=== PATIENT | female | born 1965 | race Caucasian/White ===

== ENCOUNTER 2022-01-06 13:00 | Outpatient (RCR) | payer OTHER, SELFPAY ==
[2021-11-30 11:51] LABS: Basophils Percent Auto 0.5 % (0.0-3.0); Eosinophils Percent Auto 1.8 % (0.0-7.0); Hematocrit 35.5 % (33.0-51.0); Hemoglobin* 10.7 gm/dL (12.0-16.0); Immature Granulocytes Abs Auto 0.01 K/uL (0.00-0.30); Lymphocytes Percent Auto 10.6 % (20-44); Mean Corpuscular HGB Conc 30 gm/dL (32-36); Mean Corpuscular Hemoglobin 28 pg (26-34); Mean Corpuscular Volume 92 fL (80-100); Monocytes Percent Auto 6.5 % (0.0-11.0); Neutrophils Percent Auto 80.3 % (42.0-72.0); Platelet Count* 258 K/uL (140-440); Red Blood Count 3.86 m/uL (4.00-5.20); White Blood Count* 3.97 K/uL (4.50-11.00)
[2021-11-30 12:02] LABS: Slide Review Reflex No
[2021-11-30 12:15] LABS: Albumin* 3.1 g/dL (3.3-5.0); Chloride* 103 mmol/L (96-114)
[2021-11-30 12:16] LABS: Potassium* 3.4 mmol/L (3.6-5.1); Sodium* 135 mmol/L (135-149)
[2021-11-30 12:18] LABS: Alanine Aminotransferase* 13 U/L (4-35); Alkaline Phosphatase* 88 U/L (40-150); Aspartate Amino Transferase* 27 U/L (12-35); Bilirubin Total* 0.2 mg/dL (0.1-1.5); Blood Urea Nitrogen* 14 mg/dL (7-30); Carbon Dioxide* 27 mmol/L (20-32); Total Protein* 6.1 g/dL (6.0-8.3)
[2021-11-30 12:19] LABS: Calcium* 8.5 mg/dL (8.4-10.6); Glucose* 89 mg/dL (60-115)
[2021-11-30 14:26] LABS: Creatinine* 1.1 mg/dL (0.5-1.5); Estimated Glomerular Filt Rate 59 ml/min
--- NOTE | 2021-12-03 13:06 | ONC.NURNOTE ---
follow up call to Ana on new start Capecitabine message left on voice mail to call for side effects monitoring
[2021-12-03 13:45] VITALS: BMI 29.1
--- NOTE | 2021-12-04 10:54 | ONC.NURNOTE ---
New Start Capecitabine follow up call: Ana returned yesterday's call- reports no diarrhea, denies mouth sores or redness/tenderness of hands and feet reviewed administration schedule reports mild fatigue denies any questions or concerns next follow up scheduled with provider continue with weekly labs throughout treatment spoke with dietitians yesterday and has reviewed information states she is familiar with diet suggestions to address potential diarrhea patient states she has a new job and does not have any FMLA available to her and there fore plans to continue to work full schedule during treatment
[2021-12-07 09:06] LABS: Basophils Percent Auto 0.7 % (0.0-3.0); Eosinophils Percent Auto 2.7 % (0.0-7.0); Hematocrit 35.3 % (33.0-51.0); Hemoglobin* 10.6 gm/dL (12.0-16.0); Immature Granulocytes Abs Auto 0.04 K/uL (0.00-0.30); Lymphocytes Percent Auto 8.5 % (20-44); Mean Corpuscular HGB Conc 30 gm/dL (32-36); Mean Corpuscular Hemoglobin 28 pg (26-34); Mean Corpuscular Volume 93 fL (80-100); Monocytes Percent Auto 6.5 % (0.0-11.0); Neutrophils Percent Auto 80.2 % (42.0-72.0); Platelet Count* 238 K/uL (140-440); Red Blood Count 3.78 m/uL (4.00-5.20); White Blood Count* 2.94 K/uL (4.50-11.00)
[2021-12-07 09:22] LABS: Chloride* 105 mmol/L (96-114); Potassium* 3.5 mmol/L (3.6-5.1); Sodium* 139 mmol/L (135-149)
[2021-12-07 09:25] LABS: Blood Urea Nitrogen* 9 mg/dL (7-30); Carbon Dioxide* 28 mmol/L (20-32); Est. Creatinine Clearance* 50.27; Estimated Glomerular Filt Rate 67 ml/min
[2021-12-07 09:26] LABS: Calcium* 8.3 mg/dL (8.4-10.6); Glucose* 74 mg/dL (60-115)
[2021-12-07 09:33] LABS: Slide Review Reflex No
--- NOTE | 2021-12-07 12:06 | ONC.NURNOTE ---
Lab results reviewed and called to Ana as stable
[2021-12-15 09:21] LABS: Basophils Percent Auto 0.4 % (0.0-3.0); Hematocrit 33.9 % (33.0-51.0); Hemoglobin* 10.4 gm/dL (12.0-16.0); Immature Granulocytes Abs Auto 0.02 K/uL (0.00-0.30); Lymphocytes Percent Auto 6.4 % (20-44); Mean Corpuscular HGB Conc 31 gm/dL (32-36); Mean Corpuscular Hemoglobin 29 pg (26-34); Mean Corpuscular Volume 93 fL (80-100); Monocytes Percent Auto 8.3 % (0.0-11.0); Neutrophils Percent Auto 81.1 % (42.0-72.0); Platelet Count* 168 K/uL (140-440); RDW Coefficient of Variation % 18.4 % (11.5-15.5); Red Blood Count 3.63 m/uL (4.00-5.20); White Blood Count* 2.66 K/uL (4.50-11.00)
[2021-12-15 09:23] LABS: Slide Review Reflex No
[2021-12-15 09:42] LABS: Albumin* 3.3 g/dL (3.3-5.0); Chloride* 104 mmol/L (96-114)
[2021-12-15 09:43] LABS: Potassium* 3.3 mmol/L (3.6-5.1); Sodium* 137 mmol/L (135-149)
[2021-12-15 09:45] LABS: Alkaline Phosphatase* 74 U/L (40-150); Aspartate Amino Transferase* 24 U/L (12-35); Bilirubin Total* 0.2 mg/dL (0.1-1.5); Blood Urea Nitrogen* 10 mg/dL (7-30); Carbon Dioxide* 28 mmol/L (20-32); Creatinine* 1.1 mg/dL (0.5-1.5); Estimated Glomerular Filt Rate 59 ml/min; Total Protein* 5.9 g/dL (6.0-8.3)
[2021-12-15 09:46] LABS: Alanine Aminotransferase* 14 U/L (4-35); Calcium* 8.5 mg/dL (8.4-10.6); Glucose* 85 mg/dL (60-115)
--- NOTE | 2021-12-16 09:18 | ONC.NURNOTE ---
Lab results reviewed and called to Ana yesterday WBC/ANC discussed reports no concerns with redness, tenderness of plantar or horton surfaces reports no significant loose stools but using incontinent pads for some mucusy rectal leakage discussed K again and reviewed increasing K rich foods will address with provider on 's appt
[2021-12-22 09:02] LABS: Basophils Percent Auto 0.3 % (0.0-3.0); Eosinophils Percent Auto 2.8 % (0.0-7.0); Hematocrit 34.2 % (33.0-51.0); Hemoglobin* 10.5 gm/dL (12.0-16.0); Immature Granulocytes Abs Auto 0.01 K/uL (0.00-0.30); Lymphocytes Percent Auto 5.9 % (20-44); Mean Corpuscular HGB Conc 31 gm/dL (32-36); Mean Corpuscular Hemoglobin 29 pg (26-34); Mean Corpuscular Volume 94 fL (80-100); Neutrophils Percent Auto 80.7 % (42.0-72.0); Platelet Count* 179 K/uL (140-440); Red Blood Count 3.63 m/uL (4.00-5.20)
[2021-12-22 09:08] LABS: Slide Review Reflex No
[2021-12-22 09:37] LABS: Chloride* 106 mmol/L (96-114); Potassium* 3.5 mmol/L (3.6-5.1); Sodium* 138 mmol/L (135-149)
[2021-12-22 09:39] LABS: Carbon Dioxide* 25 mmol/L (20-32); Creatinine* 0.9 mg/dL (0.5-1.5); Est. Creatinine Clearance* 55.86; Estimated Glomerular Filt Rate 76 ml/min
[2021-12-22 09:40] LABS: Blood Urea Nitrogen* 8 mg/dL (7-30); Calcium* 8.2 mg/dL (8.4-10.6); Glucose* 95 mg/dL (60-115)
--- NOTE | 2021-12-22 10:37 | ONC.NURNOTE ---
Lab results reviewed and called to Ana zelaya K noted continues with no concerns about diarrhea, mouth sores, or hand/foot redness or pain reports eating well requests that her Tuesday appt with Fanny be canceled unless she develops increase in side effects Plan for 2 more weeks of lab Ana will be continuing to follow with [facility] and encouraged Ana to speak to Dr Oro about next appts and follow up after she completes this treatment
[2021-12-28 08:43] LABS: Basophils Percent Auto 0.4 % (0.0-3.0); Eosinophils Percent Auto 9.9 % (0.0-7.0); Hematocrit 33.8 % (33.0-51.0); Hemoglobin* 10.5 gm/dL (12.0-16.0); Immature Granulocytes Abs Auto 0.04 K/uL (0.00-0.30); Lymphocytes Percent Auto 5.3 % (20-44); Mean Corpuscular HGB Conc 31 gm/dL (32-36); Mean Corpuscular Hemoglobin 30 pg (26-34); Mean Corpuscular Volume 96 fL (80-100); Monocytes Percent Auto 8.8 % (0.0-11.0); Neutrophils Percent Auto 74.2 % (42.0-72.0); Platelet Count* 217 K/uL (140-440); RDW Coefficient of Variation % 21.2 % (11.5-15.5); Red Blood Count 3.54 m/uL (4.00-5.20); White Blood Count* 2.84 K/uL (4.50-11.00)
[2021-12-28 08:49] LABS: Slide Review Reflex No
[2021-12-28 08:55] LABS: Albumin* 3.2 g/dL (3.3-5.0); Chloride* 103 mmol/L (96-114)
[2021-12-28 08:56] LABS: Potassium* 3.4 mmol/L (3.6-5.1); Sodium* 135 mmol/L (135-149)
[2021-12-28 08:58] LABS: Alkaline Phosphatase* 85 U/L (40-150); Aspartate Amino Transferase* 21 U/L (12-35); Bilirubin Total* 0.3 mg/dL (0.1-1.5); Blood Urea Nitrogen* 9 mg/dL (7-30); Carbon Dioxide* 27 mmol/L (20-32); Creatinine* 0.9 mg/dL (0.5-1.5); Est. Creatinine Clearance* 55.86; Estimated Glomerular Filt Rate 76 ml/min; Total Protein* 5.9 g/dL (6.0-8.3)
[2021-12-28 08:59] LABS: Alanine Aminotransferase* 13 U/L (4-35); Calcium* 8.3 mg/dL (8.4-10.6); Glucose* 80 mg/dL (60-115)
[2022-01-04 11:33] LABS: Basophils Percent Auto 0.6 % (0.0-3.0); Eosinophils Percent Auto 5.7 % (0.0-7.0); Hematocrit 32.4 % (33.0-51.0); Hemoglobin* 10.2 gm/dL (12.0-16.0); Immature Granulocytes Abs Auto 0.01 K/uL (0.00-0.30); Lymphocytes Percent Auto 3.9 % (20-44); Mean Corpuscular HGB Conc 32 gm/dL (32-36); Mean Corpuscular Hemoglobin 30 pg (26-34); Mean Corpuscular Volume 96 fL (80-100); Neutrophils Percent Auto 80.5 % (42.0-72.0); Platelet Count* 199 K/uL (140-440); RDW Coefficient of Variation % 21.8 % (11.5-15.5); Red Blood Count 3.36 m/uL (4.00-5.20); Slide Review Reflex No; White Blood Count* 3.32 K/uL (4.50-11.00)
[2022-01-04 11:47] LABS: Chloride* 101 mmol/L (96-114)
[2022-01-04 11:48] LABS: Sodium* 133 mmol/L (135-149)
[2022-01-04 11:50] LABS: Est. Creatinine Clearance* 50.27; Estimated Glomerular Filt Rate 67 ml/min
[2022-01-04 11:51] LABS: Blood Urea Nitrogen* 8 mg/dL (7-30); Calcium* 8.3 mg/dL (8.4-10.6); Carbon Dioxide* 27 mmol/L (20-32); Glucose* 91 mg/dL (60-115)
--- NOTE | 2022-01-04 15:34 | ONC.NURNOTE ---
Addendum entered by Myla Christianson RN 01/06/22 15:00: Patient was called with her results of labs today, her potassium is still low. She states that she has been taking the increase in potassium to 20mEq BID. She notes that in the last 24 hours she has had an increase in loose stools, she believes about 4-5 a day, with taking immodium every 4-5 hours over the last 24-48 hours. Patient denies tingling, muscle weakness, or chest pain/pressure. She lacks an appetites, but feels that she is keeping up on her water intake. Her last treatment day is tomorrow, 01/07/2022 - then her plan is to follow up in [place] with a scan and seeing primary medical oncology. Her radiation is at 1100, nursing to try to call her with updated plan from Damaris Murry prior to her heading back to [place] to home. Original Note: Labs reviewed by Fanny Bro APRN. Potassium 3.0. Pt notified of results. Pt states she has felt more tired this week. When asked if pt having loose stools pt states she has been taking an imodium every 6 hours. Pt feels this has been managing her loose stools well. Per Fanny, pt should increase her potassium 20meq PO daily to BID and to recheck BMP on 01/06/22. Pt verbalized understanding of plan of care. Instructed pt to call if her symptoms worsen she has any concerns.
[2022-01-06 14:18] LABS: Chloride* 102 mmol/L (96-114); Sodium* 132 mmol/L (135-149)
[2022-01-06 14:21] LABS: Creatinine* 0.8 mg/dL (0.5-1.5); Est. Creatinine Clearance* 62.84; Estimated Glomerular Filt Rate 87 ml/min
[2022-01-06 14:22] LABS: Blood Urea Nitrogen* 5 mg/dL (7-30); Calcium* 8.3 mg/dL (8.4-10.6); Carbon Dioxide* 26 mmol/L (20-32); Glucose* 95 mg/dL (60-115)
--- NOTE | 2022-01-08 15:28 | ONC.NURNOTE ---
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
--- NOTE | 2022-01-14 12:24 | ONC.NURNOTE ---
Pest Control [employer]ator phoned Ana in follow up since labs not done yet this week lab draw was set up for [facility] Ana reports the following: diarrhea continued to be significant and patient was admitted to [facility] for low K/low mg and hydration support She has appt with Dr Mcnair her PCP tomorrow with lab recheck She reports doing well with hydration, but appetite remains limited she has had no diarrhea since discharge and is not taking any imodium continues on Kcl TID Plan: Pest Control Applicator will check in again next week for now her PCP will be managing her electrolytes
--- NOTE | 2022-01-18 10:34 | ONC.NURNOTE ---
Symptom check and lab review by phone: Liz 4.6 reports no diarrhea since last week appetite is improving and she is tolerating her diet she sees her PCP Dr Mcnair on 01/29/[address] Mcnair about what to do with her K dose, continues on TID 20meq No further appts or labs to be done by this office at this time Ana is in agreement to continue to follow up with Dr Mcnair at this point she has an appt MCR with oncology later in January
== END 2022-05-29 23:59 | disposition home or self-care (01) ==
LOC: CCIC 13:00
PROVIDERS: Clinical Nurse Specialist; Nurse Practitioner Family; PCP Radiology Radiation Oncology; Referring Provider Radiology Radiation Oncology; Visit Provider Internal Medicine Medical Oncology
DX: C20 Malignant neoplasm of rectum (principal)
CPT/HCPCS: 36415; 80048; 80053; 85025; 97802; 99202; 99204; 99212; 99214